=== PATIENT | female | born 2005 | race Caucasian/White ===

== ENCOUNTER 2025-03-15 16:00 | Emergency (ER) | payer OTHER ==
[2025-03-15] MEDS ORDERED: Famotidine/PF 20 mg/2ml Vial ONE ×2 (16:08→16:22)
[2025-03-15] MEDS ORDERED: diphenhydrAMINE 50 MG/ML VIAL ONE (16:08)
[2025-03-15] MEDS ORDERED: Ketorolac Tromethamine 30 MG (1 mL) VIAL ONE (16:22)
[2025-03-15 16:41] LABS: #Basophils 0.05 10x3/uL (0.0-0.2); #Eosinophils 0.22 10x3/uL (0.0-0.7); #Monocytes 0.61 10x3/uL (0.11-0.59); #Neutrophils 4.70 10x3/uL (1.40-6.50); %Basophils 0.6 % (0.0-1.0); %Eosinophils 2.7 % (0.0-10.0); %Lymphocytes 32.2 % (21.0-51.0); %Monocytes 7.4 % (0.0-10.0); %Neutrophils 57.0 % (42.0-75.0); Hematocrit 39.5 % (36.0-47.0); Hemoglobin 13.7 g/dL (12.0-16.0); Mean Corpuscular Hemoglobin 30.2 pg (27.0-31.0); Mean Corpuscular Volume 87.0 fL (78.0-98.0); Platelet Count 354 10x3/uL (130-400); Red Blood Cell (RBC) Count 4.54 mill/uL (4.20-5.40); White Blood Cell (WBC) Count 8.25 10x3/uL (4.8-10.8)
[2025-03-15 16:50] LABS: BHCG - Serum Negative (NEGATIVE); Pregs Control Background? CLEAR/WHITE (CLR/WHITE); Pregs Control Bar Appear? YES (CONTROL BAR)
[2025-03-15 16:55] LABS: ALT (SGPT) 13 U/L (Less than 34); AST (SGOT) 21 U/L (11-34); Albumin 4.7 g/dL (3.1-4.5); Alkaline Phosphatase 71 U/L (40-110); Anion Gap 17 mmol/L (10-20); BUN (Urea Nitrogen) 14 mg/dL (7.0-18.7); Bilirubin, Total 0.5 mg/dL (0.3-1.2); Calc. Creatinine Clearance 0 mL/min (70-130); Calcium 9.4 mg/dL (7.8-10.44); Carbon Dioxide 21 mmol/L (22-29); Chloride 105 mmol/L (98-107); Globulin 2.9 g/dL (2.4-3.5); Glucose 160 mg/dL (70-105); Potassium 3.2 mmol/L (3.5-5.1); Sodium 140 mmol/L (136-145)
== END 2025-03-15 18:42 ==
LOC: ERS 16:00
DX: T78.40XA Allergy, unspecified, initial encounter (principal); J45.909 Unspecified asthma, uncomplicated; F43.10 Post-traumatic stress disorder, unspecified; Z79.51 Long term (current) use of inhaled steroids
CPT/HCPCS: 80053; 84703; 85025; 87428; 93005; 96374; 96375; J0169; J1200; J1308; J1885; J2919